=== PATIENT | female | born 1940 | race Caucasian/White ===

== ENCOUNTER → 2016-10-08 | Outpatient (CLI) | payer OTHER ==
[~2016-10-08] MED LIST: CEPHALEXIN 500500 M3 PO; LIPITOR10 MG PO; MAXIDE; MAXZIDE-25 MG1 EACH PO; PRADAXA150 MG PO; TAMBOCOR 100 M100 M1 PO; TOPROL XL100 MG PO; TOPROL XL50 MG PO; VENTOLIN HFA 1818 GM INH; ZETIA10 MG PO; ZYRTEC10 M5 PO
== END ==
LOC: ULTRA 11:29
DX: N63 Unspecified lump in breast (principal); R92.8 Other abnormal and inconclusive findings on diagnostic imaging of breast; R92.0 Mammographic microcalcification found on diagnostic imaging of breast

== ENCOUNTER → 2017-10-22 | Outpatient (CLI) | payer OTHER | LOC: RAD 11:26 | DX: Z12.31 Encounter for screening mammogram for malignant neoplasm of breast (principal) ==

== ENCOUNTER 2018-10-14 06:37 | Observation (INO) | payer OTHER ==
[~2018-10-14] VITALS: Ht 165.1 cm; Wt 72.6 kg
[2018-10-14 06:59] VITALS: BP 189/94
[2018-10-14 07:13] LABS: ABSOLUTE NEUTROPHILS 4.6 thou/uL (1.4-8.2); BASOPHILS 0.9 % (0.0-2.0); EOSINOPHILS 2.5 % (0.0-3.0); HEMATOCRIT 39.6 % (37.0-47.0); HEMOGLOBIN 13.1 gm/dL (12.0-15.0); LYMPHOCYTES 24.2 % (24.0-44.0); MCH 31.8 pg (26.0-34.0); MCV 96.5 fL (80.0-100.0); PLATELET COUNT 243 thou/uL (150-400); POLYS 62.4 % (36.0-66.0); RDW 12.6 % (10.5-14.5); WBC 7.3 thou/uL (4.0-11.0)
[2018-10-14 07:16] LABS: CALCIUM 9.8 mg/dL (8.5-10.1); CREATININE 1.1 mg/dL (0.6-1.0); POTASSIUM 3.7 mmol/L (3.5-5.1)
[2018-10-14 07:22] LABS: ALBUMIN 3.9 g/dL (3.4-5.0); TOTAL BILIRUBIN 0.5 mg/dL (<0.1-1.0); TOTAL PROTEIN 7.5 g/dL (6.4-8.2)
[2018-10-14] MEDS ORDERED: MAXZIDE-25 MG1 EACH PO (07:22)
[2018-10-14] MEDS ORDERED: ADVIL200 M3 PO (07:24)
[2018-10-14 07:32] LABS: PROTIME 9.5 Seconds (9.3-11.4)
[2018-10-14 07:33] LABS: APTT 23.9 Seconds (24.5-32.8)
[2018-10-14 15:00] VITALS: BP 134/59
--- NOTE | 2018-10-14 17:58 | NUR ---
ASSESSMENT DOCUMENTED. ADMISSION HX AND ASSESSMENT COMPLETED. PT HAD PACEMAKER IMPLANT ON THE LEFT CHEST. NO S/S OF INFECTION NOTED ON THE PACEMAKER INCISION. IMMOBILIZER INTACT ON THE LEFT ARM. VSS. DENIES HAVING PAIN OR DISCOMFORT. WILL CONTINUE TO MONITOR.
[2018-10-14 18:00] VITALS: BP 144/71
[2018-10-14 20:15] VITALS: BP 130/47
[2018-10-15 00:44] VITALS: BP 154/80
[2018-10-15 04:45] VITALS: BP 124/68
--- NOTE | 2018-10-15 06:48 | NUR ---
ASSUMED PT CARE AT 1900 WITH BEDSIDE REPORT TAKEN. PT IS ALERT AND ORIENTED WITH NO SIGN OF DISTRESS NOTED. PT IS STABLE AFTER PACEMAKER PLACEMENT. NO SIGN OF DISTRESS NOTED, SCHEDULED MED ADMINISTERED TO PT. PT COMPLAINS ABOUT ITCHNESS TO HER BILATERAL LLE. MEDICATION ADMINISTERED TO PT. PT IS STABLE. DENIES ANY FURTHER NEEDS AT THIS TIME.
[2018-10-15] MEDS ORDERED: ELIQUIS5 MG PO (07:23)
[2018-10-15] MEDS ORDERED: METOPROLOL SUCC50 MG PO (07:50)
[2018-10-15] MEDS ORDERED: FLECAINIDE ACET50 M2 PO (07:50)
[2018-10-15 08:02] VITALS: BP 144/67
[2018-10-15 10:13] VITALS: BP 144/67
--- NOTE | 2018-10-15 11:41 | NUR ---
ASSESSMENT DOCUMENTED. PT ALERT AND ORIENTED. VSS. NO RESPITORY OR CARDIAC DISTRESS NOTED. DENIED HAVING PAIN OR DISCOMFORT. PACEMAKER INCISION C/D/I WITH DERMABOND. NO S/S OF INFECTION NOTED. SEEN BY DR. SIMPSON. ORDERS GIVEN TO DISCHARGE PT TO HOME. DISCHARGE INSTRUCTIONS GIVEN TO PT. PT VERBERLIZE UNDERSTANDING. PT LEFT THE FACILITY ACCOMPANIED BY THE DAUGHTER.
--- NOTE | 2018-10-16 13:44 | P ---
[facility] [place] [address] [place] [address] PROCEDURE REPORT Name: LYLE ARRIAGA [id number] Admission: 10/14/18 Attend Phys: Oswaldo Su MD Discharge: 10/15/18 Date of : 41 Report #: [id number] THIS REPORT FOR: //name// CC: Екатерина Su DATE OF SERVICE: 10/14/2018 PROCEDURE PERFORMED: Pacemaker implantation. HISTORY: The patient is a 78-year-old female with a history of paroxysmal atrial fibrillation as well as sick sinus syndrome with prior syncopal episodes. In the past, she was having long conversion pauses and therefore her flecainide was stopped. More recently, she has been having recurrent syncope with evidence of sinus arrest on recent cardiac care unit nurse. She is here for dual chamber pacemaker implantation for severe sick sinus syndrome and symptomatic bradycardia. ANESTHESIA: The patient underwent MAC anesthesia with no anesthesia related complications. DESCRIPTION OF PROCEDURE: The patient underwent informed consent. We discussed the details of the procedure including the risk, which include, but not limited to bleeding, infection, vascular damage, cardiac perforation and pneumothorax. She understood these risks and is willing to proceed. The patient was brought to the EP laboratory in a fasting and unsedated state and prepped and draped in a sterile fashion. She received IV antibiotics prior to the initiation of the procedure. She underwent a venogram showing patency of the left axillary vein. Next, I injected lidocaine below the level of clavicle. Incision was made, pocket was created over the prepectoral fascia and access was obtained twice to the left axillary vein using the extrathoracic approach with sheaths positioned using the modified Seldinger technique. Next, a lead was positioned into the right ventricular mid septum and the atrial lead was placed in the right atrial appendage. Both leads had adequate pacing and sensing thresholds. Leads were sutured to the prepectoral fascia using Ethibond suture. The device was connected. Tug test were confirmed stable lead position. The pocket was irrigated with vancomycin. I then closed the pocket in 3 layers using 2-0 for the deep layer, 3-0 for the mid layer and 4-0 for the subcuticular. Surgical glue was placed to the outer skin layer. The patient awoke neurologically and hemodynamically intact. No complications and no significant bleeding. The implanted pacemaker was a [employer] model #RS9712, serial #[id number]. The atrial lead was a [employer], model #2088TC, 52 cm, serial #[id number] with a P-wave of 1 millivolt, pacing impedance of 440 ohms and a pacing threshold of 1 volt at 0.4 milliseconds. The RV lead was [employer] model #2088TC, 58 cm, serial #[id number] with an R-wave of [address] [address] PROCEDURE REPORT Name: LYLE ARRIAGA Room #: 209-P [facility] Darcy Hodge#: [id number] Admission: 10/14/18 Attend Phys: Oswaldo Su MD Discharge: 10/15/18 Date of : 41 Report #: [id number] 10.6 millivolts, pacing impedance of 630 ohms and the pacing threshold of 0.5 volts at 0.4 milliseconds. The device was programmed to the DDDR 60-130 mode. CONCLUSIONS: 1. Successful dual-chamber pacemaker implantation. 2. Satisfactory atrial and ventricular pacing and sensing thresholds. <ELECTRONICALLY SIGNED> By: Oswaldo Su MD 10/16/18 1344 1033 1058 Oswaldo Su MD /nt
== END 2018-10-15 11:40 | disposition home or self-care (01) ==
LOC: CATH 06:37 → 2N 11:25 → CATH 14:13 → 2N 10-15 11:40
PROVIDERS: ADMIT Internal Medicine Cardiovascular Disease
DX: I49.5 Sick sinus syndrome (principal); I48.0 Paroxysmal atrial fibrillation; N39.0 Urinary tract infection, site not specified; R00.1 Bradycardia, unspecified; D72.829 Elevated white blood cell count, unspecified; Z95.0 Presence of cardiac pacemaker; Z72.89 Other problems related to lifestyle; Z87.891 Personal history of nicotine dependence; Z79.899 Other long term (current) drug therapy
CPT/HCPCS: 62110; 62900; 70005

== ENCOUNTER → 2019-01-21 | Outpatient (CLI) | payer OTHER ==
[~2019-01-21] MED LIST changes: +ADVIL200 M3 PO; +ELIQUIS5 MG PO; +FLECAINIDE ACET50 M2 PO; +METOPROLOL SUCC50 MG PO
== END ==
LOC: RAD 09:53
DX: Z12.31 Encounter for screening mammogram for malignant neoplasm of breast (principal)

== ENCOUNTER → 2019-06-04 | Outpatient (CLI) | payer OTHER | LOC: ULTRA 09:01 | DX: E04.2 Nontoxic multinodular goiter (principal); E05.90 Thyrotoxicosis, unspecified without thyrotoxic crisis or storm ==

== ENCOUNTER 2019-06-29 06:23 | Inpatient (IN) | payer OTHER ==
[~2019-06-29] VITALS: Ht 165.1 cm; Wt 75.6 kg
--- NOTE | ~2019-06-29 | EMS ---
[address] [address] EMS Patient Care Report Name: LYLE ARRIAGA [id number] Admission: Attend Phys: Discharge: Date of : 41 Report #: [id number] THIS REPORT FOR: //name// Report Transmitted: 06/29/2019 06:15 EMS Care Summary [facility] MED-ACT Incident [id number] @ 06/29/2019 05:54 Incident Location [address] [place] [address] Patient LYLE ARRIAGA Female, 78 Years 1940 Patient Address [address] [place] [address] Patient History Hypertension,Pacemaker/AICD,Atrial Fibrillation, Patient Allergies No known allergies, Patient Medications Hydrochlorothiazide (Hctz), Chief Complaint SOA Disposition Transported No Lights/Gallagher Dispatch Reason Breathing Problem Transported To [facility] Narrative 1142 responded to a residents to find a 78 yr old female in her bed. Pt states that she had been having SOA for the past 6 hours and her heart had been fast for the last day. Pt denies any chest pain, denies any dizziness, denies any change in medication, and denies any trauma. Pt states that she wants to be [facility] [address] [place] [address] EMS Patient Care Report Name: LYLE ARRIAGA Room #: PRE [facility]#: [id number] Admission: Attend Phys: Discharge: Date of : 41 Report #: [id number] evaluated at the hospital. Pt was moved to the cot and seat belted in. Pt was transported to the hospital. Upon arrival to the ER, pt care was transferred to the nursing staff. No change in pt status were noted. Initial Vitals @05:59P: 122,R: 18,BP: 164/97,Pain: 0/10,GCS: 15,SpO2: 98,Revised Trauma: 12,SC Suspected: false @06:15P: 114,R: 18,BP: 135/93,Pain: 0/10,GCS: 15,SpO2: 97,Revised Trauma: 12,SC Suspected: false @06:02P: 110,R: 18,GCS: 15,SC Suspected: false Assessments @06:00MENTAL:Person Oriented,Time Oriented,Event Oriented,Place Oriented,SKIN:HEENT:Head/Face: No Abnormalities,Neck/Airway: No Abnormalities,LUNG SOUNDS:General: No Abnormalities,ABDOMEN:General: No Abnormalities,PELVIS//GI:EXTREMITIES:Left Arm: No Abnormalities,Right Arm: No Abnormalities,Left Leg: No Abnormalities,Right Leg: No Abnormalities,PULSE:NEURO:No Abnormalities, Impression Shortness of breath Procedures @06:0212-Lead ECG Timeline 05:53,Call Received 05:53,Psap Call 05:54,Dispatched 05:55,En Route 05:58,On Scene 05:59,At Patient 05:59,BP: 164/97 M,PULSE: 122,RR: 18 R,SPO2: 98 Ox,ETCO2: ,BG: ,PAIN: 0,GCS: 15, 06:02,12-Lead ECG, 06:02,BP: / M,PULSE: 110,RR: 18 R,SPO2: Ox,ETCO2: ,BG: ,PAIN: ,GCS: 15, 06:08,Depart Scene 06:15,BP: 135/93 M,PULSE: 114,RR: 18 R,SPO2: 97 Ox,ETCO2: ,BG: ,PAIN: 0,GCS: 15, 06:20,At Destination 06:22,Transfer Patient 06:42,Call Closed Disclaimer v1.1 Copyright 2019 [employer] This EMS Care Summary contains data elements from the applicable legal record [address] [address] EMS Patient Care Report Name: LYLE ARRIAGA Room #: [facility]..#: [id number] Admission: Attend Phys: Discharge: Date of : 41 Report #: [id number] (which may be displayed differently). It is designed to provide pertinent information for the following purposes: continuity of care, clinical quality, and state data reporting. The complete legal record is available to ED staff and administrators of the receiving hospital in [employer] Patient Tracker. All data is provided "as is."
[2019-06-29 06:24] VITALS: BP 145/84
[2019-06-29] MEDS ORDERED: CALCIUM 600 +1 EAC7 PO (06:36)
[2019-06-29] MEDS ORDERED: VITAMIN D3 COM1 EACH PO (06:36)
[2019-06-29 06:59] LABS: BASOPHILS 0.6 % (0.0-2.0); EOSINOPHILS 0.9 % (0.0-3.0); HEMATOCRIT 30.2 % (37.0-47.0); MCH 33.1 pg (26.0-34.0); MCHC 33.2 g/dL (28.0-37.0); MCV 99.7 fL (80.0-100.0); MONOCYTES 9.2 % (1.0-8.0); PLATELET COUNT 256 thou/uL (150-400); POLYS 66.3 % (36.0-66.0); RBC 3.03 mil/uL (4.20-5.00); RDW 13.1 % (10.5-14.5); WBC 9.1 thou/uL (4.0-11.0)
[2019-06-29 07:07] LABS: ANION GAP 8 mmol/L (7-16); BUN 70 mg/dL (7-18); CHLORIDE 102 mmol/L (98-107); CO2 27 mmol/L (21-32); CREATININE 1.1 mg/dL (0.6-1.0); GLUCOSE 137 mg/dL (74-106); POTASSIUM 3.6 mmol/L (3.5-5.1); SODIUM 137 mmol/L (136-145)
[2019-06-29 07:16] LABS: TROPONIN-I <0.06 ng/mL (<0.06)
[2019-06-29 11:03] VITALS: BP 137/59
[2019-06-29 11:17] VITALS: BP 144/69
[2019-06-29 11:30] VITALS: BP 123/67
--- NOTE | 2019-06-29 15:17 | 2DMMODE ---
[facility] [address] [place] [address] 2 D/M-MODE ECHOCARDIOGRAM Name: LYLE ARRIAGA Room #: 202-P [facility] IN ..#: [id number] Admission: 06/29/19 Attend Phys: Maggi Lucero MD Discharge: Date of : 41 Report #: [id number] THIS REPORT FOR: //name// APPROVED REPORT Study performed: 06/29/2019 14:02:49 EXAM: Comprehensive 2D, Doppler, and color-flow Echocardiogram Patient Location: Echo lab Room #: 202 Status: routine BSA: 1.82 HR: 110 bpm BP: 123/67 mmHg Rhythm: Tachycardia Other Information Study Quality: Fair Technically limited study due to body habitus. Indications Atrial Fibrillation Pacemaker 2D Dimensions IVSd: 10.93 (7-11mm) LVOT Diam: 19.83 (18-24mm) LVDd: 34.32 mm PWd: 11.88 (7-11mm) Ascending Ao: 31.57 (22-36mm) LVDs: 22.87 (25-40mm) Aortic Root: 32.83 mm Volumes Left Atrial Volume (Systole) Single Plane 4CH: 29.46 mL Aortic Valve AoV Peak Munir.: 1.50 m/s AO Peak Gr.: 8.94 mmHg Mitral Valve E/A Ratio: 0.5 MV Decel. Time: 117.82 ms MV E Max Munir.: 0.70 m/s MV A Munir.: 1.33 m/s MV PHT: 34.17 ms [facility] [address] [place] [address] 2 D/M-MODE ECHOCARDIOGRAM Name: LYLE ARRIAGA Jovita Room #: 202-P ADM IN M.R.#: [id number] Admission: 06/29/19 Attend Phys: Maggi Lucero MD Discharge: Date of : 41 Report #: [id number] IVRT: 83.04 ms Pulmonary Valve PV Peak Munir.: 0.96 m/s PV Peak Gr.: 3.72 mmHg Tricuspid Valve TR Peak Munir.: 3.35 m/s RAP Estimate: 5.00 mmHg TR Peak Gr.: 44.86 mmHg PA Pressure: 50.00 mmHg Left Ventricle The left ventricle is normal size. There is normal LV segmental wall motion. There is normal left ventricular wall thickness. Left ventricular systolic function is hyperdynamic. An intracavitary gradient is present. LVEF is >70%. Mild diastolic dysfunction is present (impaired relaxation pattern). Right Ventricle The right ventricle is normal size. The right ventricular systolic function is normal. Atria The left atrium size is normal. The right atrium size is normal. Aortic Valve The aortic valve is normal in structure. No aortic regurgitation is present. There is no aortic valvular stenosis. Mitral Valve The mitral valve is normal in structure. There is no mitral valve regurgitation noted. Tricuspid Valve The tricuspid valve is normal in structure. Mild tricuspid regurgitation. Estimated PAP is 50mmHg. Pulmonic Valve The pulmonary valve is normal in structure. Mild pulmonic regurgitation. Great Vessels The aortic root is normal in size. The ascending aorta is normal in size. IVC is normal in size and collapses >50% with inspiration. [facility] [address] [place] [address] 2 D/M-MODE ECHOCARDIOGRAM Name: LYLE ARRIAGA Room #: 202-[facility] IN ..#: [id number] Admission: 06/29/19 Attend Phys: Maggi Lucero MD Discharge: Date of : 41 Report #: [id number] Pericardium There is no pericardial effusion. <Conclusion> The left ventricle is normal size. There is normal left ventricular wall thickness. Left ventricular systolic function is hyperdynamic. An intracavitary gradient is present. Mild diastolic dysfunction is present (impaired relaxation pattern). The right ventricle is normal size. The left atrium size is normal. The aortic valve is normal in structure. There is no mitral valve regurgitation noted. Mild tricuspid regurgitation. Estimated PAP is 50mmHg. <ELECTRONICALLY SIGNED> By: Johnson Frances MD 06/29/19 1517 1517 1517 Johnson Frances MD /INF
[2019-06-29 16:00] VITALS: BP 118/59
--- NOTE | 2019-06-29 17:01 | NUR ---
ASSUMED PT CARE AT APPROXIMATELY 1130. A&O X4. FALL PRECAUTIONS IN PLACE. ASSESSMENT CHARTED. PT DENIES HAVING CHEST PAIN. PT DENIES HAVING SOB. PT DENIES HAVING ACUTE PAIN. PT ABULATES STEADY WITH STANDBY ASSIST. PT STATES SHE BECOMES DIZZY WHEN SITTING UP- DIZZINES GOES AWAY WHEN PT LAYS DOWN. VITAL SIGNS STABLE. PT AND PT'S FAMILY EDUCATED ABOUT POC. PT AND PT'S FAMILY STATED UNDERSTANDING. PT HAS NOT HAD BM SINCE ADMITTED TO THE UNIT. CONCENT FORM SIGNED FOR EGD TOMORROW. PT RESTING IN BED.
[2019-06-29 20:00] VITALS: BP 114/48
[2019-06-30] VITALS (7 sets, daily range): BP systolic 11–135; BP diastolic 41–60
--- NOTE | 2019-06-30 04:19 | NUR ---
ASSESSMENT: PT REMAAIN ALERT AND ORIENT TIMES FOUR. UP TO BR AD CHELO. VSS, AFEBRILE. HR INCREASES WITH ACTIVITY, TRENDS DOWNWARD ONCE SETTLED IN. DENIES PAIN, SOB AND N/V. NPO SINCE MN FOR EGD THIS AM. SLOW PROGRESS TOWARDS DC GOALS, WILL CONTINUE TO MONITOR.
[2019-06-30 05:05] LABS: RDW 13.2 % (10.5-14.5)
[2019-06-30 05:08] LABS: MCH 33.3 pg (26.0-34.0); MCHC 33.1 g/dL (28.0-37.0); MCV 100.3 fL (80.0-100.0); RBC 2.09 mil/uL (4.20-5.00); WBC 6.1 thou/uL (4.0-11.0)
[2019-06-30 05:16] LABS: CALCIUM 8.1 mg/dL (8.5-10.1); POTASSIUM 3.1 mmol/L (3.5-5.1)
--- NOTE | 2019-06-30 07:59 | EKG ---
[address] [address] ELECTROCARDIOGRAM REPORT Name: LYLE ARRIAGA Room #: 202-P ADM IN M.R.#: [id number] Admission: 06/29/19 Attend Phys: Maggi Lucero MD Discharge: Date of : 41 Report #: [id number] THIS REPORT FOR: //name// [facility] ED Test Date: 2019-06-29 Test Time: 06:45:24 Pat Name: LYLE ARRIAGA Department: Room: 202 Gender: F Rn Float: : 1940 Requested By: Nam Ly Order Number: [id number] MD: Oswaldo Su Measurements Intervals [place] Rate: 103 P: 53 OK: 159 QRS: -15 QRSD: 77 T: 21 QT: 342 QTc: 448 Interpretive Statements Sinus tachycardia LVH with secondary repolarization abnormality Compared to ECG 07/29/2016 04:41:25 Left ventricular hypertrophy now present Early repolarization now present Atrial fibrillation no longer present ST (T wave) deviation no longer present Electronically Signed On 06-30-2019 7:59:01 CDT by Oswaldo Su [email or web address] <ELECTRONICALLY SIGNED> By: Oswaldo Su MD 06/30/19 0759 0645 0645 Oswaldo Su MD /EPI
--- NOTE | 2019-06-30 12:55 | NUR ---
met with patient who admits with AFIB, Anemia. Patient reports she lives in independent living with family. [employer] independent with adls, uses no DME. She cont to drive. Her PCP Dr Екатерина Ramos. She reports anticipates no dc needs. Her spouse past 2 years ago. [facility] following for dc needs.
[2019-06-30 16:06] LABS: HEMATOCRIT 25.4 % (37.0-47.0); HEMOGLOBIN 8.4 gm/dL (12.0-15.0)
--- NOTE | 2019-06-30 17:56 | NUR ---
ASSUMED PT CARE AT APPROXIMATELY 0700. PT A&O X4. ASSESSMENT CHARTED. FALL PRECAUTIONS IN PLACE. VITAL SIGNS STABLE. PT DENIES HAVING CHEST PAIN. PT SOB ON EXERSION. PT'S HEART RHYTHM CHANGED IN AM. DR'S NOTIFIED. PT ASYMPTOMATIC. PT DENIES HAVING ACUTE PAIN. PT RECEIVED ONE UNIT BLOOD TRANSFUSION TODAY. PT'S K+ LEVEL LOW. 'S NOTIFIED. PT RECEIVING IV K+ REPLACEMENT. MONITORING H&H AND K+ LAB VALUES. PT AMBULATES STEADY WITH STANBY ASSIST TO BEDSIDE COMMODE. PT AND PT'S FAMILY EDUCATED ON POC. PT AND PT'S FAMILY STATED UNDERSTANDING. PT RECEIVED ADVANCEMENT IN DIET TO FULL LIQUIDS AFTER EGD PROCEDURE. PT RESTING COMFORTABLE IN BED WITHOUT FURTHER CONCERNS AT THIS TIME.
--- NOTE | 2019-07-01 03:12 | NUR ---
RECEIVED PT'S CARE AT 1900; PT. ON BED; AOX4; DURING ASSESSMENT NO C/O PAIN; EDUCATED ABOUT FALL PREVENTIONS; ST. UNDERSTANDING; HS MEDICATION GIVEN; HELPED TO BED SIDE COMMODE; STABLE; HR ON THE 110s; ST. NO FEELING DIZZIE; THROUGH THE NIGHT CALL APROPIATELY; ABLE TO REST THROUGH THE NIGHT WITH EYES CLOSED; MONITORING; NO BM; ASSESSMENT CHARGED FOLLOWING POC; MONITORING; WILL PASS ON REPORT.
[2019-07-01 04:52] VITALS: BP 114/53
[2019-07-01 05:52] LABS: HEMATOCRIT 23.8 % (37.0-47.0); HEMOGLOBIN 7.9 gm/dL (12.0-15.0); MCH 32.3 pg (26.0-34.0); MCHC 33.2 g/dL (28.0-37.0); MCV 97.3 fL (80.0-100.0); RBC 2.45 mil/uL (4.20-5.00); RDW 16.7 % (10.5-14.5); WBC 5.8 thou/uL (4.0-11.0)
[2019-07-01 06:14] LABS: CALCIUM 8.1 mg/dL (8.5-10.1); CREATININE 0.9 mg/dL (0.6-1.0); POTASSIUM 3.5 mmol/L (3.5-5.1)
[2019-07-01 07:45] VITALS: BP 139/61
[2019-07-01 11:45] VITALS: BP 147/63
[2019-07-01 11:59] LABS: % SATURATION 17 % (20-39); IRON 35 ug/dL (50-170); TIBC 209 ug/dL (250-450)
--- NOTE | 2019-07-01 12:17 | NUR ---
PT CARE ASSUMED APPROX 0700. PT ALERT AND ORIENTED X4. DENIES PAIN AND SOA. VSS. UP WITH SBA. PT DENIES QUESTIONS OR CONCERNS REGARDING POC. CHANGES NOTED TO POC. PT TOLERATING POC. PT CARE TRANSFERRED TO NEW NURSE AT THIS TIME. RECEIVING NURSE DENIES QUESTIONS OR CONCERNS. PT AWARE. NO CLINICAL CONCERNS/ISSUES AT THIS TIME.
--- NOTE | 2019-07-01 13:19 | NUR ---
ASSUMED CARE AT 1145, REPORT FROM BALDEV GEIGER. AAOX4. NO COMPLAINTS. TOLERATING SOFT DIET. SR/ST PER TELE. WILL CONTINUE TO MONITOR CLOSELY.
[2019-07-01 13:26] LABS: HEMATOCRIT 26.4 % (37.0-47.0); HEMOGLOBIN 8.6 gm/dL (12.0-15.0)
[2019-07-01 15:50] VITALS: BP 135/67
[2019-07-01 19:45] VITALS: BP 143/74
--- NOTE | 2019-07-02 04:30 | NUR ---
RECEIVED PT'S CARE AT 1910; PT. ON BED; AOX4; DURING ASSESSMENT NO C/O PAIN; HS MEDICATION GIVEN; EDUCATED ABOUT CALLING BEFORE STANDING FROM BED; ST. UNDERSTANDING; THROUGH THE NIGHT PT. USED THE TOYLET TO VOID; NO C/O DIZZINES; ST WITH EXERTION; UP WITH X1 PERSON; HEART RATE BELOW 100 DURING REST; ABLE TO REST THROUGH THE NIGHT WITH EYES CLOSED; NOTICED CHEST RAISING DURING ROUNDINS; NO BM; ASSESSMENT CHARGED; FOLLOWING POC; MONITORING; WILL PASS ON REPORT.
[2019-07-02 04:45] VITALS: BP 127/52
[2019-07-02 07:20] VITALS: BP 149/67
[2019-07-02 10:39] LABS: HEMATOCRIT 25.9 % (37.0-47.0); HEMOGLOBIN 8.7 gm/dL (12.0-15.0)
[2019-07-02 10:51] LABS: CALCIUM 8.4 mg/dL (8.5-10.1); MAGNESIUM 1.7 mg/dL (1.8-2.4); POTASSIUM 3.7 mmol/L (3.5-5.1)
[2019-07-02 11:25] VITALS: BP 139/59
--- NOTE | 2019-07-02 11:45 | NUR ---
AAOX4. CALM, COOPERATIVE. NO C/O. IRON INFUSION ORDERED. MG 1.7, ORAL REPLACEMENT ORDERED. HGB STABLE, 8.7. WILL CONTINUE TO FOLLOW CLOSELY.
[2019-07-02] MEDS ORDERED: PANTOPRAZOLE SO40 M1 PO (12:39)
[2019-07-02] MEDS ORDERED: CARAFATE 1 GM TA1 G1 PO (12:39)
[2019-07-02] MEDS ORDERED: MULTAQ 400 MG400 MG PO (12:40)
[2019-07-02 12:58] VITALS: BP 139/59
--- NOTE | 2019-07-02 14:06 | PATH ---
[facility] [address] [place] [address] PATHOLOGY RPT PROCEDURE Name: LYLE ARRIAGA Room #: 202-P ADM IN M.R.#: [id number] Admission: 06/29/19 Date of : 42 Discharge: Report #: [id number] Path Case #: [id number] [facility] Accession Number: [id number] . 01 Material submitted: . stomach - BX GASTRIC ULCER . 01 Clinical history: . Melena, GI bleed Gastric ulcer A. Rule H. pylori . 02 Diagnosis: Stomach, "gastric ulcer", biopsy: - Mild chronic inflammation, nonspecific. - No definite ulceration seen. - No evidence of Helicobacter pylori on immunoperoxidase stain. (SKM:tommy; 07/02/2019) S 07/02/2019 1004 Local . 02 Electronically signed: . Marty Reynolds MD, Pathologist NPI- [id number] . 01 Gross description: . The specimen is received in formalin, labeled "Miguel Angel, Lyle, BX gastric ulcer" and consists of multiple fragments of young tissue measuring 1.3 x 0.8 x 0.2 cm in aggregate which are entirely submitted in A1. (SDY; 07/01/2019) SYU/SYU 07/01/2019 1035 Local . 02 Pathologist provided ICD-10: K29.50 . 02 CPT . 631883, Q68450 Specimen Comment: A courtesy copy of this report has been sent to Specimen Comment: [phone]. Specimen Comment: Report sent to Performed at: [address] [facility], [place], [place] [id number] MD Arvind Trotter MD Phone: [phone] Performed at: [address] [id number] MD Alana Walsh MD Phone: [phone]
== END 2019-07-02 14:22 | disposition home or self-care (01) | DRG 378 ==
LOC: ER 06:23 → 2N 11:18 → EROBS 11:33 → 2N 11:35 → ENTRNSPT 07-02 13:53 → EDTRNSPTSTS 07-02 13:57 → 2N 07-02 14:22
PROVIDERS: Emergency Medicine; Internal Medicine; Nurse Practitioner; ADMIT Internal Medicine
DX: K25.4 Chronic or unspecified gastric ulcer with hemorrhage (principal); D62 Acute posthemorrhagic anemia; I49.5 Sick sinus syndrome; Z96.89 Presence of other specified functional implants; I48.0 Paroxysmal atrial fibrillation; E87.6 Hypokalemia; Z88.8 Allergy status to other drugs, medicaments and biological substances; Z87.891 Personal history of nicotine dependence; T39.395A Adverse effect of other nonsteroidal anti-inflammatory drugs [NSAID], initial encounter; Y92.89 Other specified places as the place of occurrence of the external cause; Z79.01 Long term (current) use of anticoagulants
CPT/HCPCS: 10081; 62110; 62900

== ENCOUNTER → 2019-08-12 | Outpatient (CLI) | payer OTHER ==
[~2019-08-12] MED LIST changes: +CALCIUM 600 +1 EAC7 PO; +CARAFATE 1 GM TA1 G1 PO; +METOPROLOL SUC100 MG PO; +MULTAQ 400 MG400 MG PO; +MULTAQ400 MG PO; +PANTOPRAZOLE SO40 M1 PO; +PROTONIX40 M2 PO; +VITAMIN D3 COM1 EACH PO
[2019-08-12 07:50] LABS: HEMATOCRIT 37.5 % (37.0-47.0); HEMOGLOBIN 12.2 gm/dL (12.0-15.0); MCH 31.7 pg (26.0-34.0); MCHC 32.4 g/dL (28.0-37.0); MCV 97.8 fL (80.0-100.0); RBC 3.84 mil/uL (4.20-5.00); RDW 14.1 % (10.5-14.5); WBC 5.6 thou/uL (4.0-11.0)
[2019-08-12 08:10] LABS: ALBUMIN 3.6 g/dL (3.4-5.0); CALCIUM 9.5 mg/dL (8.5-10.1); CREATININE 1.5 mg/dL (0.6-1.0); POTASSIUM 3.8 mmol/L (3.5-5.1); TOTAL BILIRUBIN 0.4 mg/dL (<0.1-1.0); TOTAL PROTEIN 6.9 g/dL (6.4-8.2)
== END ==
LOC: CAT 07:25
PROVIDERS: Internal Medicine Cardiovascular Disease
DX: R91.1 Solitary pulmonary nodule (principal); I48.91 Unspecified atrial fibrillation; E07.89 Other specified disorders of thyroid

== ENCOUNTER → 2019-08-23 | Outpatient (CLI) | payer OTHER ==
[~2019-08-23] VITALS: Ht 165.1 cm; Wt 74.8 kg
--- NOTE | 2019-08-25 17:06 | PATH ---
[facility] [address] [place] [address] PATHOLOGY RPT PROCEDURE Name: LYLE MICHELLE Room #: REG [facility] Kamille.#: [id number] Admission: 08/23/19 Date of : 42 Discharge: Report #: [id number] Path Case #: [id number] [facility] Accession Number: [id number] . 01 Material submitted: . stomach - GASTRIC ULCER . 01 Clinical history: . Gastric ulcer . 02 Diagnosis: Gastric mucosa, gastric ulcer, endoscopic biopsy: - Moderate reactive gastropathy. - Negative for intestinal metaplasia or atrophy. - Negative for Helicobacter pylori (properly controlled immunohistochemical stain performed). . (IUV:tommy; 08/25/2019) QMS 08/25/2019 1513 Local . 02 Electronically signed: . Alana Walsh MD, Pathologist NPI- [id number] . 01 Gross description: . Received in formalin labeled "Lyle Michelle, gastric ulcer," is a segment of young-brown soft tissue measuring 0.5 x 0.3 x 0.2 cm in greatest dimensions. The specimen is submitted entirely in cassette A1. ([facility]; 08/24/2019) XDC/XDC 08/25/2019 1512 Local . 02 Pathologist provided ICD-10: K31.9 . 02 CPT . 510456, K91612 Specimen Comment: A courtesy copy of this report has been sent to [phone] Specimen Comment: [phone], Specimen Comment: Report sent to ,DR LOVE / DR MAYO Performed at: [address] [id number] MD Arvind Trotter MD Phone: [phone] Performed at: [address] [id number] [address] [address] PATHOLOGY RPT PROCEDURE Name: LYLE MICHELLE Room #: REG [place] Hodge#: [id number] Admission: 08/23/19 Date of : 42 Discharge: Report #: [id number] Path Case #: [id number] MD Alana Walsh MD Phone: [phone]
== END | disposition home or self-care (01) ==
LOC: GI 07:28
DX: K31.9 Disease of stomach and duodenum, unspecified (principal); K44.9 Diaphragmatic hernia without obstruction or gangrene; I10 Essential (primary) hypertension; I48.91 Unspecified atrial fibrillation; E78.00 Pure hypercholesterolemia, unspecified; E78.5 Hyperlipidemia, unspecified; J45.909 Unspecified asthma, uncomplicated; Z85.828 Personal history of other malignant neoplasm of skin; Z98.41 Cataract extraction status, right eye; Z98.42 Cataract extraction status, left eye; Z98.51 Tubal ligation status; Z95.0 Presence of cardiac pacemaker; Z98.890 Other specified postprocedural states; Z79.899 Other long term (current) drug therapy; Z79.01 Long term (current) use of anticoagulants
CPT/HCPCS: 62110; 62900

== ENCOUNTER → 2019-09-07 | Outpatient (CLI) | payer OTHER ==
[~2019-09-07] VITALS: Ht 165.1 cm; Wt 74.8 kg
[~2019-09-07] MED LIST changes: +VITAMIN D310000 UNIT PO
[2019-09-07 07:13] VITALS: BP 147/56
--- NOTE | 2019-09-07 09:29 | TEE ---
[facility] [address] [place] [address] TRANSESOPHAGEAL ECHOCARDIOGRAM Name: LYLE ARRIAGA Room #: REG [facility]#: [id number] Admission: 09/07/19 Attend Phys: Parish Hawthorne, Discharge: Date of : 42 Report #: [id number] THIS REPORT FOR: //name// APPROVED REPORT Study performed: 09/07/2019 08:33:42 EXAM: Comprehensive 2D, Doppler, and color-flow Echocardiogram Patient Location: Out-Patient Room #: 9 Status: routine BSA: 1.82 HR: 72 bpm BP: 145/67 mmHg Rhythm: NSR Other Information Study Quality: Excellent Indications Atrial Fibrillation Echo Enhancing Agent Indication: Rule out Shunt Agent(s) / Amount(s) Used: Agitated Saline 7 cc Procedure After obtaining informed consent, patient underwent transesophageal echo in the [employer]. Type of Sedation : Conscious Sedation Sedation was administered by Cris DE PAZ. Sedation was achieved intravenously with: Versed (4.5 mg) Fentanyl (100 mcg) Transesophageal probe was inserted and advanced into esophagus without difficulty by Parish Hawthorne MD. Echo enhancement indication: R/O Septal defect. Echo enhancement agent administered: Agitated Saline The NAEEM was performed without complications. Throughout the procedure, the blood pressure, pulse oximetry, cardiac rhythm, and rate were monitored. The patient tolerated the procedure without adverse effects. Recovery from conscious sedation was uneventful and vital signs were stable. [facility] [address] [place] [address] TRANSESOPHAGEAL ECHOCARDIOGRAM Name: LYLE ARRIAGA Room #: REG [facility]#: [id number] Admission: 09/07/19 Attend Phys: Parish Hawthorne, Discharge: Date of : 42 Report #: [id number] Left Ventricle The left ventricle is normal size. There is normal LV segmental wall motion. There is normal left ventricular wall thickness. The left ventricular systolic function is normal. The left ventricular ejection fraction is within the normal range. LVEF is 55-60%. Right Ventricle The right ventricle is normal size. The right ventricular systolic function is normal. Pacemaker lead is present in the right ventricle. Atria The left atrium size is normal. No thrombus is visualized in the left atrium or appendage. No shunting by contrast bubble injection The right atrium size is normal. Pacemaker lead is present in the right atrium. Aortic Valve The aortic valve is normal in structure. No aortic regurgitation is present. There is no aortic valvular stenosis. Mitral Valve The mitral valve is normal in structure. Mild mitral regurgitation. No evidence of mitral valve stenosis. Tricuspid Valve The tricuspid valve is normal in structure. There is no tricuspid valve regurgitation noted. Pulmonic Valve The pulmonary valve is normal in structure. There is no pulmonic valvular regurgitation. Great Vessels The aortic root is normal in size. Mild atherosclerotic plaquing, no aneurysm. IVC is normal in size and collapses >50% with inspiration. Pericardium There is no pericardial effusion. <Conclusion> The left ventricular systolic function is normal. There is normal LV segmental wall motion. LVEF is 55-60%. The left and right atrium sizes are normal. No thrombus is visualized in the left atrium or appendage. [facility] [address] [place] [address] TRANSESOPHAGEAL ECHOCARDIOGRAM Name: LYLE ARRIAGA Room #: REG [facility]#: [id number] Admission: 09/07/19 Attend Phys: Parish Hawthorne, Discharge: Date of : 42 Report #: [id number] No shunting by contrast bubble injection The aortic valve is normal in structure. No aortic regurgitation or stenosis The mitral valve is normal in structure. Mild mitral regurgitation. There is no pericardial effusion. <ELECTRONICALLY SIGNED> By: Parish Hawthorne MD, FACC 09/07/19928 8 8 Parish Hawthorne MD, FACC /INF
== END | disposition home or self-care (01) ==
LOC: CATH 06:34
DX: I48.91 Unspecified atrial fibrillation (principal); I34.0 Nonrheumatic mitral (valve) insufficiency; I10 Essential (primary) hypertension; E78.5 Hyperlipidemia, unspecified; I70.0 Atherosclerosis of aorta; J45.909 Unspecified asthma, uncomplicated; K21.9 Gastro-esophageal reflux disease without esophagitis; Z82.49 Family history of ischemic heart disease and other diseases of the circulatory system; Z87.891 Personal history of nicotine dependence; Z98.51 Tubal ligation status; Z98.41 Cataract extraction status, right eye; Z79.899 Other long term (current) drug therapy; Z79.01 Long term (current) use of anticoagulants; Z98.42 Cataract extraction status, left eye; Z85.828 Personal history of other malignant neoplasm of skin

== ENCOUNTER 2019-09-13 06:30 | Observation (INO) | payer OTHER ==
[~2019-09-13] VITALS: Ht 165.1 cm; Wt 73.5 kg
[~2019-09-13 06:30] MED LIST changes: -VITAMIN D310000 UNIT PO
[2019-09-13 06:59] VITALS: BP 143/90
[2019-09-13 07:11] LABS: HEMOGLOBIN 12.8 gm/dL (12.0-15.0); RBC 4.09 mil/uL (4.20-5.00); WBC 5.7 thou/uL (4.0-11.0)
[2019-09-13 07:12] LABS: HEMATOCRIT 39.1 % (37.0-47.0); MCH 31.4 pg (26.0-34.0); MCHC 32.9 g/dL (28.0-37.0); MCV 95.4 fL (80.0-100.0); PLATELET COUNT 279 thou/uL (150-400); RDW 13.3 % (10.5-14.5)
[2019-09-13] MEDS ORDERED: VITAMIN D310000 UNIT PO (07:14)
[2019-09-13 07:32] LABS: ALBUMIN 3.8 g/dL (3.4-5.0); CALCIUM 9.7 mg/dL (8.5-10.1); CREATININE 1.4 mg/dL (0.6-1.0); POTASSIUM 3.8 mmol/L (3.5-5.1); TOTAL BILIRUBIN 0.4 mg/dL (<0.1-1.0); TOTAL PROTEIN 7.6 g/dL (6.4-8.2)
[2019-09-13 07:34] LABS: PROTIME 10.4 Seconds (9.3-11.4)
[2019-09-13 09:22] LABS: ABSOLUTE NEUTROPHILS 3.4 thou/uL (1.4-8.2); PLATELET ESTIMATE NORMAL
[2019-09-13 13:10] VITALS: BP 120/92
--- NOTE | 2019-09-13 13:59 | NUR ---
REC REPORT FROM PRIOR CCU NURSE, SHE ARRIVED AROUND 13:05. AT THAT TIME ALL VIEWED R GROIN SITE, 1/3 OF BANDAGE SOAKED YET NO LEAKING/OR FULLY SATURATED. FEW MINUTES LATER SOME BLOOD HAD LEAKED BETWEEN HER LEGS. HELD SLIGHT PRESSURE, CHANGED DRESSING, REMINDED HER OF HOLDING PRESSURE WITH HER COUGH; SHE COMPLIES. DOING ADMISSION AND CHECKING VS, SITE, PULSES. PT IS I&0X4, AMB INDEPENDENTLY PER REPORT. HEMOSTASIS ACHIEVED AT 11:30 PER REPORT. 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 SEE SEPARATE INTERVENTIONS AND DATA FLOW SHEET FOR ALL INFO. CARDIAC MONITORED, REPORTS OF PACEMAKER, DAUGHER ACCOMPANIED (THEY LIVE TOGETHER) AND LEFT AFTER ADMISSION STARTED. PT DENIES ANY PAIN, FOOD TRAY DELIVERED. WILL CONTINUE TO MONITOR
--- NOTE | 2019-09-13 18:58 | NUR ---
SPOKE W/PHYSICIAN RE: PT RE-BLEEDING. HE INSTRUCTED ON REMOVAL OF SUTURE, DONE WITH ANTISEPTIC WITH EXCELLENT RESULTS. HELD PRESSURE, AGAIN, FOR 20 MIN W/EXCELLENT RESULTS. PT STILL REMAINS IN GOOD SPIRITS. B/P'S 170/60S, NSR. HEMOSTATIS AGAIN ACHIEVED AT 1845, 1245 AM PT KNOWS SHE CAN MOVE AROUND W/HELP OF NURSE.
[2019-09-13 20:18] VITALS: BP 152/76
[2019-09-14 00:05] VITALS: BP 135/63
[2019-09-14 04:31] VITALS: BP 136/67
--- NOTE | 2019-09-14 05:07 | NUR ---
A/O X 4.DENIES PAIN AND SOB.TITRATED TO ROOM AIR.NO BLEEDING NOR HEMATOMA NOTED.VICTOR DISCONTINUED.NOT VOIDED YET AT THIS TIME.MONITOR SHOWS SINUS RHYTHM.POC CONTINUED.
[2019-09-14 07:25] VITALS: BP 121/48
[2019-09-14 12:00] VITALS: BP 119/55
[2019-09-14 12:50] VITALS: BP 119/55
--- NOTE | 2019-09-14 13:14 | NUR ---
PT ALERT AND ORIENTED. VSS. DENIED HAVING PAIN OR DISCOMFORT. RIGHT GROIN INCISION C/D/I. NO HEMATOMA NOTED. SEEN BY DR. GALLARDO ORDERS GIVEN TO DISCHARGE PT TO HOME. DISCHARGE INSTRUCTIONS GIVEN TO PT. PT VERBERLISED UNDERSTANDING.
--- NOTE | 2019-09-16 13:40 | P ---
[facility] [place] [address] PROCEDURE REPORT Name: LYLE ARRIAGA Room #: 203-P [facility] Naveen#: [id number] Admission: 09/13/19 Attend Phys: Oswaldo Su MD Discharge: 09/14/19 Date of : 42 Report #: [id number] THIS REPORT FOR: //name// CC: Екатерина Su PREOPERATIVE DIAGNOSIS: Atrial fibrillation. POSTOPERATIVE DIAGNOSIS: Atrial fibrillation. PROCEDURES PERFORMED: 1. Atrial fibrillation ablation, CPT code 11177. 2. 3D mapping, CPT code 08317. 3. Intracardiac echo, CPT code 59793. 4. Focal ablation, CPT code 12566. 5. Preprocedural pacemaker programming. 6. Post-procedure pacemaker reprogramming. Both of these were CPT code 32823. HISTORY: The patient is a 78-year-old female with history of atrial fibrillation as well as sick sinus syndrome with recurrent syncope, status post pacemaker implantation. She is here for AFib ablation. ANESTHESIA: The patient underwent MAC anesthesia with no anesthesia related complications. DESCRIPTION OF PROCEDURE: The patient underwent informed consent. We discussed the details of the procedure including the risks, which include but not limited to bleeding, vascular damage, cardiac perforation as well as stroke or GA. She understood these risks and is willing to proceed. The patient was brought to EP laboratory in a fasting and sedated state and prepped and draped in a sterile fashion. I injected lidocaine to the right groin region, obtained access to the right femoral vein x 3 and placed a 8, 9 and 7-Turkish short sheath using the modified Seldinger technique. Next, under fluoroscopy, decapolar catheter was placed easily in the coronary sinus and an ice catheter was placed in the right atrium. Prior to performing the EP study, a pacemaker was reprogrammed to the DDD mode. Using intracardiac ultrasound, I created a detailed 3D geometry of the left atrium and merged this with the cardiac CT scan. Next, the patient was systemically heparinized and a transseptal was performed using an SL1 sheath and a Cortland needle. Of note, when the patient arrived to the EP lab, she was in atrial fibrillation with a ventricular cycle length of 390 milliseconds, QRS duration 70 milliseconds, QT interval of 320 milliseconds. However, before I started obtaining access, she had converted to sinus on her own. Next, I exchanged the SL1 sheath for the cryo sheath and placed this in the left atrium. Using a Lasso catheter, I created a detailed 3D voltage map of the left atrium. There was evidence of two left and two right pulmonary veins. Next, I exchanged the Lasso catheter for [address] [id number] PROCEDURE REPORT Name: LYLE ARRIAGA Room #: 203-P [facility] Darcy Hodge#: [id number] Admission: 09/13/19 Attend Phys: Oswaldo Su MD Discharge: 09/14/19 Date of : 42 Report #: [id number] the cryo balloon. I started by isolating the left superior pulmonary vein. I performed two 4-minute freezes in the left superior pulmonary vein and this vein isolated within 50 seconds of the first freeze. I turned my attention to the left inferior pulmonary vein and performed two 4-minute freezes. The vein isolated within 60 seconds of the first freeze. I then turned my attention to the right-sided veins. I placed the decapolar catheter up into the subclavian vessel for phrenic nerve pacing. The right superior pulmonary vein underwent a 90-second followed by 110-second freeze. The vein isolated during the first freeze within 23 seconds. I came off early on both of these freezes as they were reaching -55 degrees. I turned my attention to the right inferior pulmonary vein and performed a 4-minute freeze. The vein isolated within 60 seconds. I then decided to perform a posterior roofline. I performed three freezes anchored from the left superior pulmonary vein and 2 freezes isolated from the right superior pulmonary vein. All of these freezes were 3 minutes of duration. The esophageal temperatures were monitored and were stable. Post-ablation voltage map was created which showed that we had created a wide circumferential ablation of the pulmonary vein. Post-ablation, the patient was in sinus rhythm with a sinus cycle length of 810 milliseconds, AK interval 155 milliseconds, QRS duration 70 milliseconds, QT interval 485 milliseconds. As such, her pacemaker was interrogated and found to be functioning normally and was programmed back to its nominal settings. The patient received systemic protamine and once ACT was within acceptable range, all catheters and sheaths were pulled. Hemostasis was obtained. CONCLUSIONS: 1. Successful AFib ablation with isolation of the pulmonary veins. 2. Successful creation of a posterior roofline. 3. Successful pacemaker reprogramming. <ELECTRONICALLY SIGNED> By: Oswaldo Su MD 09/16/19 [id number] Oswaldo Su MD /nt
--- NOTE | 2019-09-22 13:42 | NUR ---
LATE ENTRY FOR 09-13-19: MUCH ACTIVITY ATTEMPTING TO STOP BLEEDS, VS W/DATA FLOW SHEET, REALIZED AFTER THE FACT DID NOT ADD IN THE POST CATH FLOW SHEET INTERVENTION ALTHOUGH THE DATA FLOW SHEET WAS FILLED OUT. HEMOSTASIS OCCURED LATE IN SHIFT D/T SUTURE KNOT PREVENTING COAGULATION.
== END 2019-09-14 13:38 | disposition home or self-care (01) ==
LOC: CATH 06:30 → 2N 13:12 → CATH 13:30 → ENTRNSPT 09-14 13:03 → EDTRNSPTSTS 09-14 13:12 → 2N 09-14 13:38
PROVIDERS: ADMIT Internal Medicine Cardiovascular Disease
DX: I48.0 Paroxysmal atrial fibrillation (principal); I49.5 Sick sinus syndrome
CPT/HCPCS: 62110; 62900; 65020; 65040; 70005

== ENCOUNTER → 2019-11-01 | Outpatient (CLI) | payer OTHER ==
[~2019-11-01] MED LIST changes: +VITAMIN D310000 UNIT PO
== END ==
LOC: BC 08:33
DX: N60.01 Solitary cyst of right breast (principal); N63.10 Unspecified lump in the right breast, unspecified quadrant

== ENCOUNTER → 2019-12-14 | Outpatient (CLI) | payer OTHER | LOC: SJCVC 13:48 | DX: Z45.018 Encounter for adjustment and management of other part of cardiac pacemaker (principal); R94.31 Abnormal electrocardiogram [ECG] [EKG]; I21.29 ST elevation (STEMI) myocardial infarction involving other sites; I48.0 Paroxysmal atrial fibrillation; I49.5 Sick sinus syndrome; Z79.899 Other long term (current) drug therapy; Z87.891 Personal history of nicotine dependence ==

== ENCOUNTER → 2020-04-04 | Outpatient (CLI) | payer OTHER | LOC: SJCVC 12:57 | PROVIDERS: ATTEND Internal Medicine Cardiovascular Disease | DX: R94.31 Abnormal electrocardiogram [ECG] [EKG] (principal); I48.0 Paroxysmal atrial fibrillation; I49.5 Sick sinus syndrome; I10 Essential (primary) hypertension; Z95.0 Presence of cardiac pacemaker ==

== ENCOUNTER → 2020-08-28 | Outpatient (CLI) | payer OTHER ==
[~2020-08-28] MED LIST changes: +ATORVASTATIN CA10 MG PO; +HAIR, SKIN AND1 EAC1 PO; +NORVASC5 MG PO
== END ==
LOC: LAB 12:15
PROVIDERS: ATTEND Internal Medicine Gastroenterology
DX: Z20.828 Contact with and (suspected) exposure to other viral communicable diseases (principal)

== ENCOUNTER → 2020-09-04 | Outpatient (CLI) | payer OTHER ==
[~2020-09-04] VITALS: Ht 165.1 cm; Wt 72.6 kg
== END | disposition home or self-care (01) ==
LOC: GI 07:00
PROVIDERS: ATTEND Internal Medicine Gastroenterology
DX: K25.9 Gastric ulcer, unspecified as acute or chronic, without hemorrhage or perforation (principal); K31.89 Other diseases of stomach and duodenum; K44.9 Diaphragmatic hernia without obstruction or gangrene; K21.9 Gastro-esophageal reflux disease without esophagitis; I10 Essential (primary) hypertension; I48.91 Unspecified atrial fibrillation; E78.00 Pure hypercholesterolemia, unspecified; Z98.890 Other specified postprocedural states; Z85.828 Personal history of other malignant neoplasm of skin; Z79.899 Other long term (current) drug therapy; Z95.0 Presence of cardiac pacemaker; Z98.41 Cataract extraction status, right eye; Z98.42 Cataract extraction status, left eye; Z98.51 Tubal ligation status
CPT/HCPCS: 62110; 62900

== ENCOUNTER → 2020-10-04 | Outpatient (CLI) | payer OTHER | LOC: SJCVC 14:39 | PROVIDERS: ATTEND Internal Medicine Cardiovascular Disease | DX: I48.0 Paroxysmal atrial fibrillation (principal); R94.31 Abnormal electrocardiogram [ECG] [EKG]; I10 Essential (primary) hypertension; Z79.899 Other long term (current) drug therapy; Z87.891 Personal history of nicotine dependence ==

== ENCOUNTER → 2020-12-27 | Outpatient (CLI) | payer OTHER | LOC: RAD 12:56 | PROVIDERS: ATTEND Internal Medicine | DX: Z12.31 Encounter for screening mammogram for malignant neoplasm of breast (principal) ==

== ENCOUNTER → 2021-04-05 | Outpatient (CLI) | payer OTHER | LOC: SJCVCIMAG 08:53 | PROVIDERS: ATTEND Internal Medicine Cardiovascular Disease | DX: I08.1 Rheumatic disorders of both mitral and tricuspid valves (principal); I11.9 Hypertensive heart disease without heart failure; R94.31 Abnormal electrocardiogram [ECG] [EKG]; I49.1 Atrial premature depolarization; I48.0 Paroxysmal atrial fibrillation; I49.5 Sick sinus syndrome; J45.909 Unspecified asthma, uncomplicated; Z95.0 Presence of cardiac pacemaker; Z79.899 Other long term (current) drug therapy; Z87.891 Personal history of nicotine dependence; Z82.49 Family history of ischemic heart disease and other diseases of the circulatory system ==

== ENCOUNTER → 2021-10-09 | Outpatient (CLI) | payer OTHER | LOC: SJCVC 09:06 | PROVIDERS: ATTEND Internal Medicine Cardiovascular Disease | DX: R94.31 Abnormal electrocardiogram [ECG] [EKG] (principal); I48.0 Paroxysmal atrial fibrillation; I49.5 Sick sinus syndrome; I10 Essential (primary) hypertension; Z95.0 Presence of cardiac pacemaker; Z79.899 Other long term (current) drug therapy; Z72.89 Other problems related to lifestyle; Z87.891 Personal history of nicotine dependence ==